=== PATIENT | female | born 1980 | race Caucasian/White ===

== ENCOUNTER → 2016-07-25 | Outpatient (REF) ==
--- NOTE | 2016-07-26 02:37 | REP ---
Clinical: Pain and disability. Technique: AP, lateral, bilateral oblique and sunrise views of the left knee. Findings: Small calcification along the femoral insertion of the medial collateral ligament may reflect degenerative change. Remainder examination appears relatively normal for age. No acute fracture dislocation. No effusion. Joint spaces appear intact. Impression: Essentially age-appropriate examination as described above. Signed by Zachary Garza MD 07/26/2016 02:28 A
== END ==
LOC: M SMT 15:05
PROVIDERS: ATTEND Internal Medicine
DX: M19.90 Unspecified osteoarthritis, unspecified site (principal)